=== PATIENT | female | born 1955 | race Caucasian/White ===

== ENCOUNTER 2019-03-03 13:54 | Emergency (ER) | payer OTHER ==
[2019-03-03] MEDS: KETOROLAC 30 MG INJ IM (14:43)
== END 2019-03-03 16:10 | disposition home or self-care (01) ==
LOC: FTE 13:54
DX: M54.2 Cervicalgia (principal); M54.5 Low back pain
CPT/HCPCS: 72040; 72100; 96372; 99284-25

== ENCOUNTER → 2019-05-02 | Emergency (ER) | payer OTHER ==
[2019-05-02] MEDS: predniSONE 20 MG TAB PO (10:21)
[2019-05-02] MEDS: KETOROLAC 30 MG INJ IM (10:21)
[2019-05-02 11:04] LABS: ADD UMIC YES; UR ASCORBIC ACID NEGATIVE (NEGATIVE); UR BILIRUBIN (Dip) NEGATIVE (NEGATIVE); UR BLOOD (Dip) NEGATIVE (NEGATIVE); UR CLARITY SLIGHTLY CLOUDY (CLEAR); UR COLOR AMBER (YELLOW); UR GLUCOSE (Dip) NEGATIVE (NEGATIVE); UR KETONES (Dip) NEGATIVE (NEGATIVE); UR LEUKOCYTE ESTERASE (Dip) 3+ Leu/ul (NEGATIVE); UR MUCUS FEW /HPF (NONE SEEN); UR NITRITE (Dip) NEGATIVE (NEGATIVE); UR RBC 3 /HPF (0-5); UR RENAL EPITHELIAL CELL FEW /HPF (NONE SEEN); UR SPECIFIC GRAVITY (Dip) 1.018 (1.003-1.030); UR SQUAMOUS EPITHELIAL CELL FEW /HPF (FEW); UR TOTAL PROTEIN (Dip) NEGATIVE (NEGATIVE); UR UROBILINOGEN (Dip) NEGATIVE (NEGATIVE); UR WBC 8 /HPF (0-5)
== END | disposition home or self-care (01) ==
LOC: FTE 09:04
DX: M79.604 Pain in right leg (principal); N30.90 Cystitis, unspecified without hematuria
CPT/HCPCS: 81001; 96372; 99284-25